=== PATIENT | female | born 1995 | race Caucasian/White ===

== ENCOUNTER 2020-08-04 03:55 | Inpatient (IN) | payer OTHER ==
[2020-08-04] MEDS ORDERED: Methylergonovine 0.2 MG/1 ML Amp IM PRN (04:25)
[2020-08-04] MEDS ORDERED: Carboprost Tromethamine 250 MCG/1 ML Amp IM PRN (04:25)
[2020-08-04] MEDS ORDERED: Tranexamic Acid 1,000 MG in Sodium Chloride 0.9% 100 ML IV PRN (04:25)
[2020-08-04] MEDS ORDERED: Sodium Chloride 0.9% 10 ML Syringe FLUSH PRN (04:25)
[2020-08-04] MEDS ORDERED: Sodium Chloride 0.9% 10 ML SDV IV PRN (04:25)
[2020-08-04] MEDS ORDERED: Butorphanol 1 MG/ML SDV IVPUSH PRN (04:25)
[2020-08-04] MEDS ORDERED: Water For Irrigation,Sterile 1,000 ML Container IRR PRN (04:25)
[2020-08-04] MEDS ORDERED: Lidocaine 1% 50 ML MDV INJECT PRN (04:25)
[2020-08-04] MEDS ORDERED: Nalbuphine 10 MG/1 ML Vial IVPUSH PRN (04:25)
[2020-08-04] MEDS ORDERED: Misoprostol 200 MCG Tab PO PRN (04:25)
[2020-08-04] MEDS ORDERED: Sodium Chloride 0.9% 2.5 ML Syringe FLUSH PRN (04:25)
[2020-08-04] MEDS ORDERED: Oxytocin/0.9 % Sodium Chloride 30 UNIT/500 ML BAG IV SCH ×2 (04:30→06:30)
[2020-08-04] MEDS: Lactated Ringers 1,000 ML IV SCH ×3 (08:05→19:16)
[2020-08-04] MEDS ORDERED: fentaNYL 100 MCG/2 ML SDV ONE (11:00)
[2020-08-04] MEDS ORDERED: Ropivacaine 0.2% PF 2 MG/ML 20 ML SDV ONE (11:01)
[2020-08-04] MEDS ORDERED: Ropivacaine HCl/PF 100 ML ONE (11:01)
--- NOTE | 2020-08-04 11:43 | PCM.PREANE ---
Preanesthetic Assessment - Procedure Proposed Procedure: SHANA - Anesthesia/Transfusion/Family Hx Anesthesia History: Prior Anesthesia Without Reaction Family History of Anesthesia Reaction: No Transfusion History: No Prior Transfusion(s) Intubation History: Unknown - Review of Systems General: No Symptoms Pulmonary: No Symptoms Cardiovascular: No Symptoms Gastrointestinal: No Symptoms Neurological: No Symptoms Other: Reports: Anxiety - Physical Assessment NPO Status Date: 08/04/20 NPO Status Time: 11:40 (Clear Liquids) Height: 1.55 m Weight: 81.647 kg ASA Class: 2 Mental Status: Alert & Oriented x3 Airway Class: Mallampati = 2 Dentition: Reports: Normal Dentition Thyro-Mental Finger Breadths: 3 Mouth Opening Finger Breadths: 3 ROM/Head Extension: Full Lungs: Clear to Auscultation Cardiovascular: Regular Rate - Lab Values: Laboratory Last Values WBC 8.56 K/uL (4.0-11.0) 08/04/20 05:41 RBC 3.99 M/uL (4.30-5.90) L 08/04/20 05:41 Hgb 12.9 g/dL (12.0-16.0) 08/04/20 05:41 Hct 38.3 % (36.0-46.0) 08/04/20 05:41 MCV 96.0 fL (80.0-98.0) 08/04/20 05:41 MCH 32.3 pg (27.0-32.0) H 08/04/20 05:41 MCHC 33.7 g/dL (31.0-37.0) 08/04/20 05:41 RDW Std Deviation 44.6 fl (28.0-62.0) 08/04/20 05:41 RDW Coeff of Patricia 13 % (11.0-15.0) 08/04/20 05:41 Plt Count 126 K/uL (150-400) L 08/04/20 05:41 MPV 9.40 fL (7.40-12.00) 08/04/20 05:41 Nucleated RBC % 0.0 /100WBC 08/04/20 05:41 Nucleated RBCs # 0 K/uL 08/04/20 05:41 Membrane Rupture POSITIVE 08/04/20 04:13 SARS-CoV-2 RNA (ABRAN) NEGATIVE (NEGATIVE) 08/04/20 05:53 Blood Type A POSITIVE 08/04/20 05:41 Antibody Screen NEGATIVE 08/04/20 05:41 - Allergies Allergies/Adverse Reactions: Allergies Allergy/AdvReac Type Severity Reaction Status Date / Time No Known Allergies Allergy Verified 08/04/20 04:21 - Blood Blood Available: No Product(s) Available: None - Anesthesia Plan Pre-Op Medication Ordered: None - Acknowledgements Anesthesia Type Planned: Epidural Pt an Appropriate Candidate for the Planned Anesthesia: Yes Alternatives and Risks of Anesthesia Discussed w Pt/Guardian: Yes Pt/Guardian Understands and Agrees with Anesthesia Plan: Yes Additional Comments: 5 cm. Active labor. 07/11 pain. Discussed. ? answered. Permit signed. Acceptable candidate. 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: Musculoskeletal History: Reports: None Neurological History: Reports: None Psychiatric History: Reports: None Endocrine/Metabolic History: Reports: Obesity/BMI 30+ Hematologic History: Reports: None Immunologic History: Reports: None Oncologic (Cancer) History: Reports: None Dermatologic History: Reports: None - Infectious Disease History Infectious Disease History: Reports: None - Past Surgical History HEENT Surgical History: Reports: Other (See Below) Other HEENT Surgeries/Procedures: [place] teeth 2016 - SUBSTANCE USE Tobacco Use Status *Q: Never Tobacco User Second Hand Smoke Exposure: No Recreational Drug Use History: No - HOME MEDS Home Medications: Home Meds Vits #93/Iron Fum/FA [ Formula Tablet] 1 each PO 04/30/18 [History] - CURRENT (IN HOUSE) MEDS Current Meds: Current Medications Butorphanol Tartrate (Stadol) 1 mg IVPUSH Q1H PRN PRN Reason: Pain Carboprost Tromethamine (Hemabate Ds) 250 mcg IM ASDIRECTED PRN PRN Reason: Post Hemorrhage Oxytocin/Sodium Chloride (Oxytocin 30 Unit/500 Ml-Ns) 30 unit in 500 mls @ 500 mls/hr IV TITRATE NAOMI Tranexamic Acid 1,000 mg/ (Sodium Chloride) 110 mls @ 660 mls/hr IV ONETIME PRN PRN Reason: Bleeding Lactated Ringer's (Ringers, Lactated) 1,000 mls @ 150 mls/hr IV ASDIRECTED NAOMI Last Admin: 08/04/20 11:25 Dose: 999 mls/hr Documented by: Oxytocin/Sodium Chloride (Oxytocin 30 Unit/500 Ml-Ns) 30 unit in 500 mls @ 2 mls/hr IV TITRATE NAOMI; Protocol Last Infusion: 08/04/20 09:30 Dose: 6 munits/min, 6 mls/hr Documented by: Lidocaine HCl (Xylocaine 1%) 50 ml INJECT ONETIME PRN PRN Reason: Laceration repair Methylergonovine Maleate (Methergine) 0.2 mg IM ASDIRECTED PRN PRN Reason: Post Hemorrhage Misoprostol (Cytotec) 200 mcg PO ONETIME PRN PRN Reason: Post Hemorrhage Nalbuphine HCl (Nubain) 10 mg IVPUSH Q1H PRN PRN Reason: Pain (severe 7-10) Sodium Chloride (Saline Flush) 10 ml FLUSH ASDIRECTED PRN PRN Reason: Keep Vein Open Sodium Chloride (Saline Flush) 2.5 ml FLUSH ASDIRECTED PRN PRN Reason: Keep Vein Open Sodium Chloride (Normal Saline) 10 ml IV ASDIRECTED PRN PRN Reason: IV Use Sterile Water (Sterile Water For Irrigation) 1,000 ml IRR ASDIRECTED PRN PRN Reason: delivery Discontinued Medications Fentanyl (Sublimaze) Confirm Administered Dose 100 mcg .ROUTE .STK-MED ONE Stop: 08/04/20 11:01 Ropivacaine (Naropin 0.2%) Confirm Administered Dose 100 mls @ as directed .ROUTE .STK-MED ONE Stop: 08/04/20 11:02 Ropivacaine (Naropin 0.2%) Confirm Administered Dose 20 ml .ROUTE .STK-MED ONE Stop: 08/04/20 11:02
[2020-08-04] MEDS ORDERED: Lanolin 100% Cream 7 GM Tube TOP PRN (21:40)
[2020-08-04] MEDS ORDERED: Ibuprofen 400 MG Tab PO PRN (21:40)
[2020-08-04] MEDS ORDERED: Acetaminophen 500 MG Tab PO PRN (21:40)
[2020-08-04] MEDS ORDERED: Benzocaine/Menthol 20%-0.5% Spray 78 GM Cannister TOP PRN (21:40)
[2020-08-04] MEDS ORDERED: Bisacodyl 10 MG Supp RECTAL PRN (21:40)
[2020-08-04] MEDS ORDERED: Witch Hazel Medicated Pads 40/Jar TOP PRN (21:40)
[2020-08-04] MEDS ORDERED: oxyCODONE 5 MG Tab PO PRN (21:40)
--- NOTE | 2020-08-04 21:47 | PCM.OPNOTE ---
- General Post-Op/Procedure Note Date of Surgery/Procedure: 08/04/20 Operative Procedure(s): /2nd MLL repaired Findings: Viable male APGARs 9, 9 weight 3830 gm. Spontaneous delivery intact placenta with 3V cord Pre Op Diagnosis: 40/1 week IUP. PPROM Post-Op Diagnosis: Same Anesthesia Technique: Epidural Primary Surgeon: Talita Haley EBL in mLs: 300 Complications: none known Condition: Stable Free Text/Narrative:: Dictation [id number]
--- NOTE | 2020-08-04 22:34 | OR ---
SURGEON: Talita Haley M.D. DATE OF PROCEDURE: 08/04/2020 PREOPERATIVE DIAGNOSES: 1. 40 and 1 week intrauterine . 2. Premature prolonged rupture of membranes. POSTOPERATIVE DIAGNOSES: 1. 40 and 1 week intrauterine . 2. Premature prolonged rupture of membranes. PROCEDURE: Spontaneous vaginal delivery, second-degree midline laceration. PRIMARY SURGEON: Talita Haley M.D. ANESTHESIA: Epidural. ESTIMATED BLOOD LOSS: 300 mL. COMPLICATIONS: None known. FINDINGS: Viable male. scores 9 at one minute and 9 at five minutes. Weight of 3830 g. Spontaneous delivery, intact placenta, 3-vessel cord. DISPOSITION: Infant to nursery, mom in LDRP. INDICATIONS: Tayla is a 24-year-old G2, P1, at 40 and 1 weeks gestational age, who presented on the print developer automatic of 08/04/2020, with spontaneous rupture of membranes with clear fluid at approximately 2300 the evening before. She was managed throughout the day by Dr. Florez. I assumed care shortly after 5 p.m. for on-call duty. At that time, the patient was found to be comfortable with an epidural, 8 to 9 cm dilated, and an IUPC was placed. The patient was on Pitocin augmentation. The patient continued to progress and shortly after 8 p.m. was found to be complete, 100% effaced, -2 station, began pushing efforts, pushed adequately to a +4 station. I was called for delivery. PROCEDURE IN DETAIL: Upon my arrival, the patient was placed in a modified dorsal lithotomy position, and prepped and draped in usual aseptic manner. Continued with pushing efforts, was able to push to deliver 's head atraumatically, spontaneously delivered the head, followed by anterior shoulder, posterior shoulder, and remainder of the body without difficulty. The 's oropharynx and nares were bulb suctioned. The infant was handed off to his mother attending nursery staff at her side. After a delay, the cord was clamped x2 and cut. Cord arterial, cord venous, cord blood sampling obtained. Light pressure was applied while the placenta was delivered spontaneously intact. Vigorous fundal uterine massage was then applied while 30 units of Pitocin was delivered in 500 mL of IV fluid. Upon inspection of cervix, vaginal sidewalls, and perineum, there was a deep second-degree midline laceration noted. This was repaired using a continuous running of the deeper subcutaneous tissue followed by repair with 3-0 Vicryl in the usual fashion of the remaining second-degree laceration. Sponge, instrument count, and needle count was correct. The patient remained in the LDRP. Hemostasis was evident. to nursery. LARRY / SIMON /[id number]
[2020-08-04] MEDS: Ibuprofen 800 MG Tab PO PRN (23:27)
[2020-08-04] MEDS: Docusate Sodium 100 MG Cap PO PRN (23:27)
[2020-08-05] MEDS: Ibuprofen 800 MG Tab PO PRN ×3 (05:09→19:36)
--- NOTE | 2020-08-05 08:50 | PCM.PNPP ---
- General Info Date of Service: 08/05/20 Subjective Update: 24yo s/p PPD 1 , denies any complains , ambulating and tolerating regular diet Functional Status: Reports: Pain Controlled, Tolerating Diet, Ambulating, Urinating - Review of Systems General: Reports: No Symptoms HEENT: Reports: No Symptoms Pulmonary: Reports: No Symptoms Cardiovascular: Reports: No Symptoms Gastrointestinal: Reports: No Symptoms Genitourinary: Reports: No Symptoms Musculoskeletal: Reports: No Symptoms Skin: Reports: No Symptoms Neurological: Reports: No Symptoms Psychiatric: Reports: No Symptoms - General Info Date of Service: 08/05/20 - Patient Data Vital Signs - Most Recent: Last Vital Signs Temp 35.9 C L 08/05/20 05:17 Pulse 84 08/05/20 05:17 Resp 16 08/05/20 05:17 BP 110/60 08/05/20 05:17 Pulse Ox 97 08/05/20 05:17 Weight - Most Recent: 81.647 kg Lab Results - Last 24 Hours: Laboratory Results - last 24 hr 08/04/20 08/05/20 Range/Units 21:16 05:28 Hgb 11.2 L (12.0-16.0) g/dL Hct 32.9 L (36.0-46.0) % Cord ABG pH 7.307 (7.18-7.38) Cord ABG Base Excess -6 (-10--2) Cord VBG pH 7.312 (7.25-7.45) Cord VBG Base Excess -7 (-10--2) Med Orders - Current: Current Medications Acetaminophen (Tylenol Extra Strength) 500 mg PO Q4H PRN PRN Reason: Pain Acetaminophen (Tylenol Extra Strength) 1,000 mg PO Q4H PRN PRN Reason: Pain Benzocaine/Menthol (Dermoplast Pain Relief 20%-0.5% Center) 78 gm TOP ASDIRECTED PRN PRN Reason: Perineal Comfort Measure Last Admin: 08/04/20 23:26 Dose: 1 can Documented by: Bisacodyl (Dulcolax) 10 mg RECTAL ONETIME PRN PRN Reason: Constipation Butorphanol Tartrate (Stadol) 1 mg IVPUSH Q1H PRN PRN Reason: Pain Carboprost Tromethamine (Hemabate Ds) 250 mcg IM ASDIRECTED PRN PRN Reason: Post Hemorrhage Docusate Sodium (Colace) 100 mg PO BID PRN PRN Reason: Constipation Last Admin: 08/04/20 23:27 Dose: 100 mg Documented by: Emollient Ointment (Lansinoh Hpa) 0 gm TOP ASDIRECTED PRN PRN Reason: Sore Nipples Oxytocin/Sodium Chloride (Oxytocin 30 Unit/500 Ml-Ns) 30 unit in 500 mls @ 500 mls/hr IV TITRATE NAOMI Tranexamic Acid 1,000 mg/ (Sodium Chloride) 110 mls @ 660 mls/hr IV ONETIME PRN PRN Reason: Bleeding Lactated Ringer's (Ringers, Lactated) 1,000 mls @ 150 mls/hr IV ASDIRECTED NAOMI Last Admin: 08/04/20 19:16 Dose: 150 mls/hr Documented by: Oxytocin/Sodium Chloride (Oxytocin 30 Unit/500 Ml-Ns) 30 unit in 500 mls @ 2 mls/hr IV TITRATE NAOMI; Protocol Last Infusion: 08/04/20 09:30 Dose: 6 munits/min, 6 mls/hr Documented by: Ibuprofen (Motrin) 400 mg PO Q4H PRN PRN Reason: Pain Ibuprofen (Motrin) 800 mg PO Q6H PRN PRN Reason: Pain Last Admin: 08/05/20 05:09 Dose: 800 mg Documented by: Lidocaine HCl (Xylocaine 1%) 50 ml INJECT ONETIME PRN PRN Reason: Laceration repair Methylergonovine Maleate (Methergine) 0.2 mg IM ASDIRECTED PRN PRN Reason: Post Hemorrhage Misoprostol (Cytotec) 200 mcg PO ONETIME PRN PRN Reason: Post Hemorrhage Nalbuphine HCl (Nubain) 10 mg IVPUSH Q1H PRN PRN Reason: Pain (severe 7-10) Oxycodone HCl (Oxycodone) 5 mg PO Q2H PRN PRN Reason: Pain Sodium Chloride (Saline Flush) 10 ml FLUSH ASDIRECTED PRN PRN Reason: Keep Vein Open Sodium Chloride (Saline Flush) 2.5 ml FLUSH ASDIRECTED PRN PRN Reason: Keep Vein Open Sodium Chloride (Normal Saline) 10 ml IV ASDIRECTED PRN PRN Reason: IV Use Sterile Water (Sterile Water For Irrigation) 1,000 ml IRR ASDIRECTED PRN PRN Reason: delivery Josep Batista (Tucks) 1 pad TOP ASDIRECTED PRN PRN Reason: comfort care Discontinued Medications Fentanyl (Sublimaze) Confirm Administered Dose 100 mcg .ROUTE .STK-MED ONE Stop: 08/04/20 11:01 Ropivacaine (Naropin 0.2%) Confirm Administered Dose 100 mls @ as directed .ROUTE .STK-MED ONE Stop: 08/04/20 11:02 Ropivacaine (Naropin 0.2%) Confirm Administered Dose 20 ml .ROUTE .STK-MED ONE Stop: 08/04/20 11:02 - Infant Interaction Support Person: - Recovery Exam Fundal Tone: Firm Fundal Level: At Umbilicus Fundal Placement: Midline Lochia Amount: Moderate Lochia Color: Rubra/Red Perineum Description: Edematous Episiotomy/Laceration: Approximated Bladder Status: Voiding Urinary Elimination: Voided - Exam General: Alert HEENT: Pupils Equal Neck: Supple Lungs: Clear to Auscultation Cardiovascular: Regular Rate, Regular Rhythm GI/Abdominal Exam: Normal Bowel Sounds Extremities: Normal Inspection Neurological: No New Focal Deficit Psy/Mental Status: Alert - Problem List & Annotations (1) Vaginal delivery SNOMED Code(s): 748392510 Code(s): O80 - ENCOUNTER FOR FULL-TERM UNCOMPLICATED DELIVERY Status: Acute Current Visit: No - Problem List Review Problem List Initiated/Reviewed/Updated: No - Assessment Assessment:: 24yo s/p PPD1 , ambulating , voiding and tolerating regular diet - Plan Plan:: Discharge home Routine
[2020-08-05] MEDS: Acetaminophen 500 MG Tab PO PRN (09:21)
[2020-08-05] MEDS: Docusate Sodium 100 MG Cap PO PRN ×2 (09:21→19:58)
--- NOTE | 2020-08-05 12:41 | PCM48HPAN ---
Post Anesthesia Note - EVALUATION WITHIN 48HRS OF ANESTHETIC Vital Signs in Normal Range: Yes Patient Participated in Evaluation: Yes Respiratory Function Stable: Yes Airway Patent: Yes Cardiovascular Function Stable: Yes Hydration Status Stable: Yes Pain Control Satisfactory: Yes Nausea and Vomiting Control Satisfactory: Yes Mental Status Recovered: Yes Vital Signs: Last Vital Signs Temp 35.9 C L 08/05/20 05:17 Pulse 84 08/05/20 05:17 Resp 16 08/05/20 05:17 BP 110/60 08/05/20 05:17 Pulse Ox 97 08/05/20 05:17 - COMMENTS/OBSERVATIONS Free Text/Narrative:: Doing well.
[2020-08-06] MEDS: Acetaminophen 500 MG Tab PO PRN (02:11)
--- NOTE | 2020-08-06 08:33 | PCM.PNPP ---
- General Info Date of Service: 08/06/20 Subjective Update: 24yo s/p PPD 2 , denies any complains , ambulating and tolerating regular diet Functional Status: Reports: Pain Controlled, Tolerating Diet, Ambulating, Urinating - Review of Systems General: Reports: No Symptoms HEENT: Reports: No Symptoms Pulmonary: Reports: No Symptoms Cardiovascular: Reports: No Symptoms Gastrointestinal: Reports: No Symptoms Genitourinary: Reports: No Symptoms Musculoskeletal: Reports: No Symptoms Skin: Reports: No Symptoms Neurological: Reports: No Symptoms Psychiatric: Reports: No Symptoms - General Info Date of Service: 08/06/20 - Patient Data Vital Signs - Most Recent: Last Vital Signs Temp 35.9 C L 08/06/20 07:43 Pulse 67 08/06/20 05:49 Resp 14 08/06/20 07:43 BP 114/60 08/06/20 07:43 Pulse Ox 98 08/06/20 07:43 Weight - Most Recent: 81.647 kg Lab Results - Last 24 Hours: Laboratory Results - last 24 hr 08/04/20 Range/Units 05:41 RPR Non-Reac (Non-Reac) Med Orders - Current: Current Medications Acetaminophen (Tylenol Extra Strength) 500 mg PO Q4H PRN PRN Reason: Pain Acetaminophen (Tylenol Extra Strength) 1,000 mg PO Q4H PRN PRN Reason: Pain Last Admin: 08/06/20 02:11 Dose: 1,000 mg Documented by: Benzocaine/Menthol (Dermoplast Pain Relief 20%-0.5% [place]) 78 gm TOP ASDIRECTED PRN PRN Reason: Perineal Comfort Measure Last Admin: 08/04/20 23:26 Dose: 1 can Documented by: Bisacodyl (Dulcolax) 10 mg RECTAL ONETIME PRN PRN Reason: Constipation Butorphanol Tartrate (Stadol) 1 mg IVPUSH Q1H PRN PRN Reason: Pain Carboprost Tromethamine (Hemabate Ds) 250 mcg IM ASDIRECTED PRN PRN Reason: Post Hemorrhage Docusate Sodium (Colace) 100 mg PO BID PRN PRN Reason: Constipation Last Admin: 08/05/20 19:58 Dose: 100 mg Documented by: Emollient Ointment (Lansinoh Hpa) 0 gm TOP ASDIRECTED PRN PRN Reason: Sore Nipples Last Admin: 08/05/20 19:57 Dose: 7 gram Documented by: Oxytocin/Sodium Chloride (Oxytocin 30 Unit/500 Ml-Ns) 30 unit in 500 mls @ 500 mls/hr IV TITRATE NAOMI Tranexamic Acid 1,000 mg/ (Sodium Chloride) 110 mls @ 660 mls/hr IV ONETIME PRN PRN Reason: Bleeding Lactated Ringer's (Ringers, Lactated) 1,000 mls @ 150 mls/hr IV ASDIRECTED NAOMI Last Admin: 08/04/20 19:16 Dose: 150 mls/hr Documented by: Oxytocin/Sodium Chloride (Oxytocin 30 Unit/500 Ml-Ns) 30 unit in 500 mls @ 2 mls/hr IV TITRATE NAOMI; Protocol Last Infusion: 08/04/20 09:30 Dose: 6 munits/min, 6 mls/hr Documented by: Ibuprofen (Motrin) 400 mg PO Q4H PRN PRN Reason: Pain Ibuprofen (Motrin) 800 mg PO Q6H PRN PRN Reason: Pain Last Admin: 08/05/20 19:36 Dose: 800 mg Documented by: Lidocaine HCl (Xylocaine 1%) 50 ml INJECT ONETIME PRN PRN Reason: Laceration repair Methylergonovine Maleate (Methergine) 0.2 mg IM ASDIRECTED PRN PRN Reason: Post Hemorrhage Misoprostol (Cytotec) 200 mcg PO ONETIME PRN PRN Reason: Post Hemorrhage Nalbuphine HCl (Nubain) 10 mg IVPUSH Q1H PRN PRN Reason: Pain (severe 7-10) Oxycodone HCl (Oxycodone) 5 mg PO Q2H PRN PRN Reason: Pain Sodium Chloride (Saline Flush) 10 ml FLUSH ASDIRECTED PRN PRN Reason: Keep Vein Open Sodium Chloride (Saline Flush) 2.5 ml FLUSH ASDIRECTED PRN PRN Reason: Keep Vein Open Sodium Chloride (Normal Saline) 10 ml IV ASDIRECTED PRN PRN Reason: IV Use Sterile Water (Sterile Water For Irrigation) 1,000 ml IRR ASDIRECTED PRN PRN Reason: delivery Witch Lynne (Tucks) 1 pad TOP ASDIRECTED PRN PRN Reason: comfort care Discontinued Medications Fentanyl (Sublimaze) Confirm Administered Dose 100 mcg .ROUTE .STK-MED ONE Stop: 08/04/20 11:01 Ropivacaine (Naropin 0.2%) Confirm Administered Dose 100 mls @ as directed .ROUTE .STK-MED ONE Stop: 08/04/20 11:02 Ropivacaine (Naropin 0.2%) Confirm Administered Dose 20 ml .ROUTE .STK-MED ONE Stop: 08/04/20 11:02 - Infant Interaction Support Person: - Recovery Exam Fundal Tone: Firm Fundal Level: 1 Fingerbreadths Below Umbilicus Fundal Placement: Midline Lochia Amount: Moderate Lochia Color: Rubra/Red Perineum Description: Intact, Minimal Bruising/Swelling Episiotomy/Laceration: Approximated Bladder Status: Nonpalpable, Voiding Urinary Elimination: Voided - Exam General: Alert HEENT: Pupils Equal Neck: Supple Lungs: Clear to Auscultation Cardiovascular: Regular Rate GI/Abdominal Exam: Normal Bowel Sounds Extremities: Normal Inspection Psy/Mental Status: Alert - Problem List & Annotations (1) Vaginal delivery SNOMED Code(s): 992740840 Code(s): O80 - ENCOUNTER FOR FULL-TERM UNCOMPLICATED DELIVERY Status: Acute Current Visit: No - Problem List Review Problem List Initiated/Reviewed/Updated: Yes - Assessment Assessment:: 24yo s/p PPD2 , ambulating , voiding and tolerating regular diet - Plan Plan:: Discharge home Routine
== END 2020-08-06 14:40 | disposition home or self-care (01) | DRG 807 ==
LOC: MW.OBCHECK 03:55 → MW.OB 03:56 → MW.OBCHECK 21:16 → OBSVTOIN 21:16 → MW.OB 21:16
PROVIDERS: ADMIT Obstetrics & Gynecology; ATTEND Obstetrics & Gynecology
PROC: 10E0XZZ Delivery of Products of Conception, External Approach (ICD-10-PCS; principal; 2020-08-04)
PROC: 0KQM0ZZ Repair Perineum Muscle, Open Approach (ICD-10-PCS; 2020-08-04)
PROC: 3E0R3BZ Introduction of Anesthetic Agent into Spinal Canal, Percutaneous Approach (ICD-10-PCS; 2020-08-04)
PROC: 00HU33Z Insertion of Infusion Device into Spinal Canal, Percutaneous Approach (ICD-10-PCS; 2020-08-04)
DX: O42.92 Full-term premature rupture of membranes, unspecified as to length of time between rupture and onset of labor (principal); Z37.0 Single live birth; O70.1 Second degree perineal laceration during delivery; Z3A.40 40 weeks gestation of pregnancy
CPT/HCPCS: 36415; 51702; 59025; 59409; 82803; 84112; 85014; 85018; 85027; 86592; 86850; 86900; 86901; A9270-GY; J2590; J7120; U0002